=== PATIENT | male | born 1990 | race Two or more races ===

== ENCOUNTER 2022-03-06 11:12 | Emergency (ER) | payer OTHER ==
[~2022-03-06] VITALS: Ht 167.6 cm; Wt 68.0 kg
[2022-03-06] MEDS ORDERED: CEFTRIAXONE 1GM BAG (ER ONLY) 50 ML IV ONE ×2 (11:40→12:00)
[2022-03-06] MEDS ORDERED: KETOROLAC TROMETHAMINE INJ 30 MG/ML VIAL ONE (11:41)
--- NOTE | 2022-03-06 11:48 | NUR ---
URINE SAMPLE PROVIDED BY PT AND COLLECTED BY PHLEB TECH
--- NOTE | 2022-03-06 11:50 | NUR ---
LAC #20, BLOOD DRAWN AND COLLECTED BY PHLEB AT BEDSIDE.
--- NOTE | 2022-03-06 11:54 | NUR ---
[employer] CLEANER AT BEDSIDE FOR ULTRASOUND
[2022-03-06 11:57] LABS: BASOPHILS % (AUTO) 0.2 % (0.0-2.0); EOSINOPHILS % (AUTO) 0.5 % (0.0-6.0); HEMATOCRIT 46 % (39-51); HEMOGLOBIN 14.8 g/dL (13.5-17.5); LYMPHOCYTES # (AUTO) 0.8 K/uL (0.8-4.8); LYMPHOCYTES % (AUTO) 6.7 % (20.0-44.0); MEAN CORPUSCULAR HGB CONC 32 g/dl (31.0-36.0); MEAN CORPUSCULAR VOLUME 84 fL (80-96); MONOCYTES # (AUTO) 0.5 K/uL (0.1-1.30); NEUTROPHILS # (AUTO) 10.2 K/uL (1.8-8.9); NEUTROPHILS % (AUTO) 88.6 % (43.0-81.0); PLATELET COUNT (AUTO) 184 K/uL (150-450); RED BLOOD CELL COUNT(AUTO) 5.47 MIL/uL (4.5-6.0); WHITE BLOOD COUNT (AUTO) 11.5 K/uL (4.3-11.0)
[2022-03-06] MEDS ORDERED: KETOROLAC TROMETHAMINE INJ 30 MG/ML VIAL IV ONE (12:00)
[2022-03-06] MEDS ORDERED: IV NS 0.9% 1,000 ML BAG IV ONE (12:00)
[2022-03-06 12:04] LABS: CALCIUM, SERUM 8.9 mg/dL (8.5-10.1); CREATININE 1.1 mg/dL (0.6-1.3); POTASSIUM 3.6 mmol/L (3.5-5.1)
[2022-03-06 12:11] LABS: ALBUMIN 3.6 g/dL (3.4-5.0); BILIRUBIN,DIRECT 0.1 mg/dL (0.0-0.2); BILIRUBIN,TOTAL 0.3 mg/dL (0.2-1.0); TOTAL PROTEIN, SERUM 8.6 g/dL (6.4-8.2)
[2022-03-06 12:12] LABS: BILIRUBIN,URINE NEGATIVE (NEGATIVE); LEUKOCYTE ESTERASE ,URINE NEGATIVE (NEGATIVE); NITRITE, URINE NEGATIVE (NEGATIVE); PROTEIN,URINE NEGATIVE (NEGATIVE); UGLUCOSE NEGATIVE (NEGATIVE); UROBILINOGEN,URINE 0.2 EU/dL (0.2)
[2022-03-06 12:16] LABS: COLOR,URINE STRAW (YELLOW)
[2022-03-06] MEDS ORDERED: HYDR-3972 PO (12:58)
[2022-03-06] MEDS ORDERED: DOXY-326 PO (12:58)
[2022-03-06] MEDS ORDERED: IBUP-1953 PO (12:58)
--- NOTE | 2022-03-06 13:17 | NUR ---
IV removed. Catheter intact and site benign. Pressure and 4x4 applied to site. No bleeding noted.
--- NOTE | 2022-03-06 13:17 | NUR ---
Patient discharged to home in stable condition. Written and verbal after care instructions given. Patient verbalizes understanding of instruction.
[2022-03-06 13:18] VITALS: BP 120/68
== END 2022-03-06 13:34 | disposition home or self-care (01) ==
LOC: ER 11:36
DX: N45.1 Epididymitis (principal)
CPT/HCPCS: 99285; 96365; 96375; 76870; 85025; 80048; 80076; 81003; 36415; J1885; J7030; J0696